=== PATIENT | female | born 2000 | race Two or more races ===

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

== ENCOUNTER 2023-02-07 20:21 | Emergency (ER) | payer MEDICAID ==
[~2023-02-07] VITALS: Ht 162.6 cm; Wt 70.0 kg
[~2023-02-07 20:21] MED LIST: IBUP-1985 PO; LIDO45CR TOP
[2023-02-07 20:31] VITALS: BP 103/65; PULSE 132; RESP 20; TEMP 100.1; O2SAT 100
[2023-02-07] MEDS ORDERED: NIRM1TAB PO (23:13)
[2023-02-07] MEDS ORDERED: acetaminophen 325mg tablet PO ONE (23:15)
[2023-02-07] MEDS ORDERED: ketorolac trometh inj. 60 MG/2 ML VIAL IM ONE (23:15)
[2023-02-07] MEDS ORDERED: proCHLORperazine 10 MG/2 ml inj IM ONE (23:15)
== END 2023-02-07 23:44 | disposition home or self-care (01) ==
LOC: ER 20:22
DX: U07.1 COVID-19 (principal)
CPT/HCPCS: 36415; 87502; 87503; 87811; 96372; 99284; J0780; J1885